=== PATIENT | female | born 1995 | race Caucasian/White ===

== ENCOUNTER 2017-03-10 15:35 | Observation (INO) ==
--- NOTE | 2017-03-10 16:32 | OB/GYN Progress Note ---
Date of Encounter: 03/10/17 Time of Encounter: 16:32 - Assessment and Plan (1) Spotting affecting in second trimester Current Visit: Yes Status: Acute Speculum exam shows vaginal vault with no evidence of bleeding thick white drainage noted Vaginosis panel sent UA + C/S sent heart tones present We will await results of UA then discharge patient home (2) 22 weeks gestation of Current Visit: Yes Status: Acute Subjective - Subjective Interval history: 21-year-old 22+3 weeks gestation presents to triage after one incidence of having blood in her underwear and subsequent spotting when wiping at work. Patient reports good movement, denies leaking of fluid, or contractions, pain or burning with urination. Patient states she was told she had a low- lying placenta on ultrasound 2 weeks ago. Last sexual activity over 2 months ago. Antepartum ROS: vaginal bleeding, movement normal, no loss of fluid, no contractions Objective - Exam FHR: auscultation normal FHR comments: Heart tones present for gestational age Auscultation: bilateral: normal Abdomen: Present: normal appearance, soft, gravid Uterus: Present: normal Cervical dilation: Closed/Thick/high
[2017-03-10 18:39] LABS: Bilirubin,Urine Negative (Negative); Blood,Urine Negative (Negative); Clarity,Urine Clear (Clear); Color,Urine Yellow (Yellow); Glucose,Urine (UA) Normal (Normal); Ketones,Urine Negative (Negative); Leukocyte Esterase,Urine Trace (Negative); Nitrite,Urine Negative (Negative); Protein,Urine Negative (Neg-Trace); Specific Gravity,Urine > 1.030 (1.010-1.025); Urobilinogen,Urine Normal (Normal)
[2017-03-10 18:41] LABS: Bacteria,Urine Few per hpf (None-Few); Hyaline Casts,Urine None Seen per lpf (None-Few); Squamous Epithelial Cell,Urine Many per lpf (None-Few)
== END 2017-03-10 18:50 | disposition home or self-care (01) ==
LOC: 1NENULAB
PROVIDERS: ADMIT Obstetrics & Gynecology; ATTEND Obstetrics & Gynecology

== ENCOUNTER 2017-04-22 19:28 | Observation (INO) ==
--- NOTE | 2017-04-22 20:38 | OB/GYN Progress Note ---
Date of Encounter: 04/22/17 Time of Encounter: 20:29 - Assessment and Plan (1) Candidiasis of genitalia in female Current Visit: Yes Status: Acute patient is a 21y/o @ 28+4 weeks who presented to [facility] with cutaneous yeast, clotrimazole 1% cream script given, will discharge to follow up in the office Objective - Vital Signs Vital Signs: Intake and Output 04/22/17 04/22/17 04/22/17 07:59 15:59 23:59 Other: Weight 93.3 kg Patient Weight 04/22/17 23:59 Weight 93.3 kg
== END 2017-04-22 20:38 | disposition home or self-care (01) ==
LOC: 1NENULAB
PROVIDERS: ADMIT Student in an Organized Health Care Education/Training Program; ATTEND Student in an Organized Health Care Education/Training Program

== ENCOUNTER → 2020-02-26 15:20 | Observation (INO) ==
[2020-02-26 14:10] LABS: Bilirubin,Urine Negative (Negative); Blood,Urine Negative (Negative); Clarity,Urine Cloudy (Clear); Color,Urine Yellow (Yellow); Glucose,Urine (UA) Normal (Normal); Ketones,Urine Negative (Negative); Leukocyte Esterase,Urine Negative (Negative); Nitrite,Urine Negative (Negative); Protein,Urine Negative (Neg-Trace); Specific Gravity,Urine 1.013 (1.010-1.025); Urobilinogen,Urine Normal (Normal)
[2020-02-26 14:12] LABS: Bacteria,Urine Few per hpf (None-Few); Hyaline Casts,Urine None Seen per lpf (None-Few); RBC,Urine 0-3 per hpf (0-3); Squamous Epithelial Cell,Urine Many per lpf (None-Few)
== END | disposition home or self-care (01) ==
LOC: 1NENULAB
PROVIDERS: ADMIT Obstetrics & Gynecology; ATTEND Obstetrics & Gynecology

== ENCOUNTER → 2020-04-09 20:20 | Observation (INO) | END | disposition home or self-care (01) | LOC: 1NENULAB | PROVIDERS: ADMIT Obstetrics & Gynecology; ATTEND Obstetrics & Gynecology ==

== ENCOUNTER 2020-04-27 05:08 | Inpatient (IN) ==
[2020-04-27] MEDS: *HR* FentaNYL (PF) 100 MCG/2 ML VIAL IVP PRN ×2 (03:20→04:37)
[2020-04-27 03:22] LABS: Basophils # 0.1 K/mcL (0.0-0.2); Basophils % 0.4 %; Eosinophils # 0.1 K/mcL (0.0-0.6); Eosinophils % 0.7 %; Hematocrit 34.7 % (35.3-44.9); Hemoglobin 11.3 g/dL (11.5-15.4); Immature Granulocytes % 1.1 % (0-4); Lymphocytes # 2.8 K/mcL (0.6-4.6); Lymphocytes % 17.7 %; Mean Corpuscular HGB Conc 32.6 g/dL (31.6-35.5); Mean Corpuscular Hemoglobin 29.4 pg (28.0-33.3); Mean Corpuscular Volume 90.1 fL (83.0-100.0); Mean Platelet Volume 11.8 fL (9.4-12.4); Monocytes # 1.5 K/mcL (0.0-1.3); Monocytes % 9.1 %; Neutrophils # 11.3 K/mcL (1.6-8.9); Platelet Count 193 K/mcL (140-400); Red Blood Count 3.85 M/mcL (3.82-4.97); Red Cell Distribution Width 14.3 % (11.5-14.5); White Blood Count 15.9 K/mcL (4.3-11.1)
[2020-04-27 03:45] LABS: Amphetamine Screen,Urine Negative ng/mL (Cutoff=1000); Barbiturate Screen,Urine Negative ng/mL (Cutoff=200); Benzodiazepines Screen,Urine Negative ng/mL (Cutoff=200); Cannabinoid Screen,Urine Positive ng/mL (Cutoff = 50); Cocaine Screen,Urine Negative ng/mL (Cutoff= 300); Opiate Screen,Urine Negative ng/mL (Cutoff=300); Phencyclidine Screen,Urine Negative ng/mL (Cutoff=25)
[~2020-04-27 05:08] MED LIST: Azithromycin 500 MG in 0.9 % Sodium Chloride 250 ML IVPB ONE; Famotidine 20 MG/2 ML VIAL IVP PRN; Metoclopramide 10 MG/2 ML VIAL IVP PRN; Naloxone 0.4 MG/ML INJ IVP PRN; Ondansetron 4 MG/2 ML VIAL IVP PRN; Ringers Solution, Lactated 1,000 ML IVC SCH
[2020-04-27] MEDS ORDERED: Oxytocin 20 units/ LR 1000 mL 20 UNIT/1,000 ML BAG IVC ONE (07:34)
[2020-04-27] MEDS ORDERED: Oxytocin 20 units/ LR 1000 mL 20 UNIT/1,000 ML BAG IVC SCH (08:02)
[2020-04-27] MEDS ORDERED: Acetaminophen 325 MG TABLET PO PRN (08:02)
[2020-04-27] MEDS ORDERED: Measles/Mumps/Rubella Vacc 0.5 ML VIAL SQ PRN (08:02)
[2020-04-27] MEDS ORDERED: Rho Immune Globulin 1,500 UNIT SYRINGE IM PRN (08:02)
[2020-04-27] MEDS: Prenatal Vit/FA 1 EACH TABLET PO SCH (08:12)
[2020-04-27] MEDS: Ibuprofen 600 MG TABLET PO PRN (08:12)
[2020-04-28 05:49] LABS: Basophils # 0.1 K/mcL (0.0-0.2); Basophils % 0.4 %; Eosinophils # 0.2 K/mcL (0.0-0.6); Hematocrit 33.5 % (35.3-44.9); Hemoglobin 10.7 g/dL (11.5-15.4); Immature Granulocytes % 1.5 % (0-4); Lymphocytes # 3.4 K/mcL (0.6-4.6); Lymphocytes % 22.3 %; Mean Corpuscular HGB Conc 31.9 g/dL (31.6-35.5); Mean Corpuscular Hemoglobin 29.2 pg (28.0-33.3); Mean Corpuscular Volume 91.3 fL (83.0-100.0); Mean Platelet Volume 11.9 fL (9.4-12.4); Monocytes # 1.3 K/mcL (0.0-1.3); Monocytes % 8.4 %; Platelet Count 147 K/mcL (140-400); Red Blood Count 3.67 M/mcL (3.82-4.97); Red Cell Distribution Width 14.5 % (11.5-14.5); Segmented Neutrophils % 66.4 %; White Blood Count 15.1 K/mcL (4.3-11.1)
[2020-04-28 07:54] VITALS: BP 114/76
[2020-04-28] MEDS: Prenatal Vit/FA 1 EACH TABLET PO SCH (07:59)
[2020-04-28] MEDS: Ibuprofen 600 MG TABLET PO PRN (07:59)
== END 2020-04-28 10:15 | disposition home or self-care (01) | DRG 560 ==
LOC: 1NENULAB → 1NENUOBS 08:05
PROVIDERS: ADMIT Student in an Organized Health Care Education/Training Program; ATTEND Student in an Organized Health Care Education/Training Program